=== PATIENT | female | born 1970 | race Caucasian/White ===

== ENCOUNTER 2019-10-31 11:49 | Outpatient (CLI) | payer OTHER ==
--- NOTE | 2019-10-31 15:20 | MMO ---
Bilateral MAMMO Bilat Screen [facility]. CLINICAL HISTORY: Patient is 49 years old and is seen for screening. The patient has no family history of breast cancer. The patient has a history of colon cancer at age 19. VIEWS: The views performed were: bilateral craniocaudal with tomosynthesis and bilateral mediolateral oblique with tomosynthesis. FILMS COMPARED: The present examination has been compared to prior imaging studies performed at [facility] on 10/27/2010 and 09/16/2012, [facility]. This study has been interpreted with the assistance of computer-aided detection. MAMMOGRAM FINDINGS: The breasts are almost entirely fat. There are benign appearing and vascular calcifications seen in both breasts. There are no suspicious masses, suspicious calcifications, or new areas of architectural distortion. IMPRESSION: THERE IS NO MAMMOGRAPHIC EVIDENCE OF MALIGNANCY. A ROUTINE FOLLOW-UP MAMMOGRAM IN 1 YEAR IS RECOMMENDED. THE RESULTS OF THIS EXAM WERE SENT TO THE PATIENT. ACR BI-RADS Category 2 - Benign finding MAMMOGRAPHY NOTE: 1. A negative mammogram report should not delay a biopsy if a dominant of clinically suspicious mass is present. 2. Approximately 10% to 15% of breast cancers are not detected by mammography. 3. Adenosis and dense breasts may obscure an underlying neoplasm. Reported by: NICOLE PEREZ MD Electonically Signed: [id number]
== END 2019-10-31 11:50 | disposition home or self-care (01) ==
LOC: BICMAMMO 11:49
PROVIDERS: ATTEND Family Medicine
DX: Z12.31 Encounter for screening mammogram for malignant neoplasm of breast (principal); Z85.038 Personal history of other malignant neoplasm of large intestine
CPT/HCPCS: 77063; 77067

== ENCOUNTER 2021-12-05 09:55 | Outpatient (CLI) | payer OTHER ==
[2021-12-05] MEDS ORDERED: Iopamidol 370 76% 100 ML VIAL ONE (10:09)
== END 2021-12-05 09:56 | disposition home or self-care (01) ==
LOC: CT 09:55
PROVIDERS: ATTEND Physician Assistant Medical
DX: R10.9 Unspecified abdominal pain (principal); K76.0 Fatty (change of) liver, not elsewhere classified; K44.9 Diaphragmatic hernia without obstruction or gangrene; M47.816 Spondylosis without myelopathy or radiculopathy, lumbar region; M43.16 Spondylolisthesis, lumbar region; Z90.710 Acquired absence of both cervix and uterus; Z98.890 Other specified postprocedural states
CPT/HCPCS: 74177

== ENCOUNTER 2022-02-20 11:16 | Inpatient (IN) | payer OTHER ==
[2022-02-20 12:31] LABS: #Basophils 0.1 thou/uL (0.0-0.2); #Eosinphils 0.2 thou/uL (0.0-0.7); #Lymphocytes 1.9 thou/uL (1.20-3.40); #Monocytes 0.8 thou/uL (0.11-0.59); #Neutrophils 6.5 thou/uL (1.40-6.50); %Basophils 0.7 % (0.0-1.0); %Eosinophils 2.3 % (0.0-10.0); %Lymphocytes 20.3 % (21.0-51.0); %Neutrophils 68.7 % (42.0-75.0); Hemoglobin 11.8 g/dL (12.0-16.0); Mean Corpuscular HGB CONC 31.7 g/dL (32.0-36.0); Mean Corpuscular Hemoglobin 34.2 pg (27.0-31.0); Mean Platelet Volume 7.2 fL (7.4-10.4); Platelet Count 245 thou/uL (130-400); RBC Distribution Width 16.6 % (11.5-14.5); Red Blood Cell (RBC) Count 3.45 mill/uL (4.20-5.40); White Blood Cell (WBC) Count 9.5 thou/uL (4.8-10.8)
[2022-02-20 12:59] LABS: CK (CPK) 54 U/L (29-168); Lipase 11 U/L (8-78)
[2022-02-20 13:01] LABS: ALT (SGPT) 24 U/L (8-55); AST (SGOT) 74 U/L (5-34); Acetaminophen Less than 10.0 mcg/mL (10.0-30.0); Albumin 2.2 g/dL (3.5-5.0); Alcohol Less than 10 mg/dL (Less than 10); Alkaline Phosphatase 201 U/L (40-110); Anion Gap 9 mmol/L (10-20); BUN (Urea Nitrogen) 6 mg/dL (9.8-20.1); Bilirubin, Total 2.2 mg/dL (0.2-1.2); Calc. Creatinine Clearance 0 mL/min (70-130); Calcium 7.6 mg/dL (7.8-10.44); Carbon Dioxide 26 mmol/L (22-29); Chloride 103 mmol/L (98-107); Glucose 68 mg/dL (70-105); Potassium 4.2 mmol/L (3.5-5.1); Protein, Total 6.2 g/dL (6.0-8.3); Salicylate Less than 8.0 mg/dL (15.0-30.0); Sodium 134 mmol/L (136-145)
[2022-02-20 14:02] LABS: INR-International Normal Ratio 1.4; PTT 44.1 sec (22.9-36.1); Prothrombin Time 17.6 sec (12.0-14.7)
[2022-02-20] MEDS ORDERED: Ondansetron ODT 4 MG TAB PO PRN (15:29)
[2022-02-20] MEDS ORDERED: Ondansetron PF 4 MG/2 ML Vial IVP PRN (15:29)
[2022-02-20] MEDS ORDERED: Acetaminophen 650 MG Suppository PR PRN (15:29)
[2022-02-20] MEDS ORDERED: Thiamine 100 MG TAB PO SCH (15:45)
[2022-02-20] MEDS: cefTRIAXone\\ROCEPHIN 1 GM in Sodium Chloride 0.9% 100 ML IVPB SCH (18:22)
[2022-02-20] MEDS: levETIRAcetam 500 MG TAB PO SCH (21:05)
[2022-02-20] MEDS: Acetaminophen 325 MG TAB PO PRN (21:06)
[2022-02-20] MEDS: Topiramate 25 MG TAB PO SCH (21:43)
[2022-02-20 22:15] LABS: SARS-CoV-2 PCR by NAA Not Detected (NotDetected)
[2022-02-21] MEDS: Acetaminophen 325 MG TAB PO PRN (03:31)
[2022-02-21 04:51] LABS: Hemoglobin 10.8 g/dL (12.0-16.0); Mean Corpuscular HGB CONC 30.7 g/dL (32.0-36.0); Mean Corpuscular Hemoglobin 33.8 pg (27.0-31.0); Mean Platelet Volume 7.5 fL (7.4-10.4); Platelet Count 204 thou/uL (130-400); RBC Distribution Width 16.7 % (11.5-14.5); Red Blood Cell (RBC) Count 3.18 mill/uL (4.20-5.40)
[2022-02-21] MEDS: HYDROcodone/Acetaminophen 10/325 mg Tablet PO PRN ×2 (05:01→21:48)
[2022-02-21] MEDS: Levothyroxine Sodium 50 MCG TAB PO SCH (05:01)
[2022-02-21 05:15] LABS: ALT (SGPT) 22 U/L (8-55); AST (SGOT) 76 U/L (5-34); Albumin 1.8 g/dL (3.5-5.0); Alkaline Phosphatase 177 U/L (40-110); Anion Gap 12 mmol/L (10-20); BUN (Urea Nitrogen) 5 mg/dL (9.8-20.1); Bilirubin, Total 1.7 mg/dL (0.2-1.2); Calc. Creatinine Clearance 152 mL/min (70-130); Calcium 7.6 mg/dL (7.8-10.44); Carbon Dioxide 20 mmol/L (22-29); Chloride 109 mmol/L (98-107); Globulin 3.8 g/dL (2.4-3.5); Glucose 60 mg/dL (70-105); Potassium 4.2 mmol/L (3.5-5.1); Protein, Total 5.6 g/dL (6.0-8.3); Sodium 137 mmol/L (136-145)
[2022-02-21 05:16] LABS: #Eosinphils 0.2 thou/uL (0.0-0.7); #Lymphocytes 1.7 thou/uL (1.20-3.40); #Monocytes 0.8 thou/uL (0.11-0.59); #Neutrophils 4.3 thou/uL (1.40-6.50); %Basophils 0.5 % (0.0-1.0); %Eosinophils 3.1 % (0.0-10.0); %Lymphocytes 23.6 % (21.0-51.0); %Monocytes 10.8 % (0.0-10.0); MDiff Complete? YES; Macrocytosis SLIGHT = 6-15 cells (100X) (0-5/hpf); Target Cells SLIGHT = 2-5 cells (100X) (0-1/hpf)
[2022-02-21] MEDS: Spironolactone 25 MG TAB PO SCH (08:50)
[2022-02-21] MEDS: levETIRAcetam 500 MG TAB PO SCH ×2 (08:50→21:48)
[2022-02-21] MEDS: Thiamine 100 MG TAB PO SCH (08:50)
[2022-02-21] MEDS: Furosemide 20 MG TAB PO SCH (08:50)
[2022-02-21] MEDS: Topiramate 25 MG TAB PO SCH ×2 (08:50→21:48)
[2022-02-21] MEDS ORDERED: levETIRAcetam 500 MG TAB PO SCH (09:00)
[2022-02-21] MEDS: cefTRIAXone\\ROCEPHIN 1 GM in Sodium Chloride 0.9% 100 ML IVPB SCH (16:44)
[2022-02-21] MEDS: Rifaximin 550 MG TAB PO SCH (21:50)
[2022-02-22] MEDS: HYDROcodone/Acetaminophen 10/325 mg Tablet PO PRN ×2 (03:20→18:31)
[2022-02-22] MEDS: Levothyroxine Sodium 50 MCG TAB PO SCH (06:29)
[2022-02-22 07:01] LABS: #Basophils 0.1 thou/uL (0.0-0.2); #Eosinphils 0.2 thou/uL (0.0-0.7); #Lymphocytes 2.6 thou/uL (1.20-3.40); #Monocytes 1.1 thou/uL (0.11-0.59); #Neutrophils 6.2 thou/uL (1.40-6.50); %Basophils 0.7 % (0.0-1.0); %Eosinophils 1.9 % (0.0-10.0); %Lymphocytes 25.6 % (21.0-51.0); %Monocytes 10.5 % (0.0-10.0); %Neutrophils 61.2 % (42.0-75.0); Hemoglobin 12.2 g/dL (12.0-16.0); Mean Corpuscular HGB CONC 31.1 g/dL (32.0-36.0); Mean Corpuscular Hemoglobin 34.1 pg (27.0-31.0); Platelet Count 239 thou/uL (130-400); RBC Distribution Width 17.2 % (11.5-14.5); Red Blood Cell (RBC) Count 3.58 mill/uL (4.20-5.40); White Blood Cell (WBC) Count 10.1 thou/uL (4.8-10.8)
[2022-02-22] MEDS: Rifaximin 550 MG TAB PO SCH ×2 (09:30→21:55)
[2022-02-22] MEDS: levETIRAcetam 500 MG TAB PO SCH ×2 (09:30→21:55)
[2022-02-22] MEDS: Furosemide 20 MG TAB PO SCH (09:31)
[2022-02-22] MEDS: Spironolactone 25 MG TAB PO SCH (09:31)
[2022-02-22] MEDS: Thiamine 100 MG TAB PO SCH (09:31)
[2022-02-22 10:13] LABS: Albumin 2.2 g/dL (3.5-5.0)
[2022-02-22 10:15] LABS: Chloride 108 mmol/L (98-107); Sodium 138 mmol/L (136-145)
[2022-02-22 10:16] LABS: Glucose 77 mg/dL (70-105)
[2022-02-22 10:17] LABS: Anion Gap 15 mmol/L (10-20); Carbon Dioxide 20 mmol/L (22-29)
[2022-02-22 10:18] LABS: Bilirubin, Total 1.3 mg/dL (0.2-1.2)
[2022-02-22 10:19] LABS: Alkaline Phosphatase 203 U/L (40-110); Calc. Creatinine Clearance 120 mL/min (70-130)
[2022-02-22 10:20] LABS: BUN (Urea Nitrogen) 6 mg/dL (9.8-20.1)
[2022-02-22 10:21] LABS: Magnesium 2.1 mg/dL (1.6-2.6)
[2022-02-22 10:22] LABS: ALT (SGPT) 28 U/L (8-55)
[2022-02-22] MEDS: Topiramate 25 MG TAB PO SCH ×2 (11:27→22:22)
[2022-02-22 11:41] LABS: Potassium 4.4 mmol/L (3.5-5.1)
[2022-02-22 11:42] LABS: Protein, Total 6.2 g/dL (6.0-8.3)
[2022-02-22 11:43] LABS: AST (SGOT) 109 U/L (5-34)
[2022-02-22 11:44] LABS: Phosphorus 4.2 mg/dL (2.3-4.7)
[2022-02-22 15:48] LABS: Potassium 5.7 mmol/L (3.5-5.1)
[2022-02-22] MEDS: cefTRIAXone\\ROCEPHIN 1 GM in Sodium Chloride 0.9% 100 ML IVPB SCH (17:02)
[2022-02-22 19:01] LABS: Potassium 3.5 mmol/L (3.5-5.1)
[2022-02-23 04:08] LABS: #Basophils 0.1 thou/uL (0.0-0.2); #Eosinphils 0.2 thou/uL (0.0-0.7); #Lymphocytes 2.4 thou/uL (1.20-3.40); #Monocytes 0.7 thou/uL (0.11-0.59); #Neutrophils 3.6 thou/uL (1.40-6.50); %Basophils 0.8 % (0.0-1.0); %Eosinophils 2.6 % (0.0-10.0); %Lymphocytes 34.9 % (21.0-51.0); %Monocytes 9.8 % (0.0-10.0); %Neutrophils 51.9 % (42.0-75.0); Hemoglobin 11.3 g/dL (12.0-16.0); Mean Corpuscular HGB CONC 30.7 g/dL (32.0-36.0); Mean Corpuscular Hemoglobin 33.4 pg (27.0-31.0); Mean Platelet Volume 7.3 fL (7.4-10.4); Platelet Count 249 thou/uL (130-400); RBC Distribution Width 17.4 % (11.5-14.5); Red Blood Cell (RBC) Count 3.38 mill/uL (4.20-5.40)
[2022-02-23 04:28] LABS: ALT (SGPT) 22 U/L (8-55); AST (SGOT) 76 U/L (5-34); Albumin 1.9 g/dL (3.5-5.0); Alkaline Phosphatase 184 U/L (40-110); Anion Gap 13 mmol/L (10-20); BUN (Urea Nitrogen) 5 mg/dL (9.8-20.1); Bilirubin, Total 1.2 mg/dL (0.2-1.2); Calc. Creatinine Clearance 140 mL/min (70-130); Calcium 7.9 mg/dL (7.8-10.44); Carbon Dioxide 23 mmol/L (22-29); Chloride 110 mmol/L (98-107); Globulin 3.7 g/dL (2.4-3.5); Glucose 85 mg/dL (70-105); Potassium 3.3 mmol/L (3.5-5.1); Protein, Total 5.6 g/dL (6.0-8.3); Sodium 143 mmol/L (136-145)
[2022-02-23] MEDS: HYDROcodone/Acetaminophen 10/325 mg Tablet PO PRN ×3 (04:51→22:42)
[2022-02-23] MEDS: Levothyroxine Sodium 50 MCG TAB PO SCH (05:00)
[2022-02-23] MEDS: Topiramate 25 MG TAB PO SCH ×2 (09:05→22:29)
[2022-02-23] MEDS: Rifaximin 550 MG TAB PO SCH ×2 (09:05→22:29)
[2022-02-23] MEDS: Thiamine 100 MG TAB PO SCH (09:05)
[2022-02-23] MEDS: levETIRAcetam 500 MG TAB PO SCH ×2 (09:05→22:29)
[2022-02-23] MEDS: Furosemide 20 MG TAB PO SCH (09:05)
[2022-02-23] MEDS: cefTRIAXone\\ROCEPHIN 1 GM in Sodium Chloride 0.9% 100 ML IVPB SCH (15:11)
[2022-02-24 05:33] LABS: #Eosinphils 0.1 thou/uL (0.0-0.7); #Lymphocytes 2.1 thou/uL (1.20-3.40); #Monocytes 0.6 thou/uL (0.11-0.59); #Neutrophils 3.9 thou/uL (1.40-6.50); %Basophils 0.6 % (0.0-1.0); %Eosinophils 1.8 % (0.0-10.0); %Lymphocytes 31.3 % (21.0-51.0); %Monocytes 9.4 % (0.0-10.0); Mean Corpuscular HGB CONC 31.2 g/dL (32.0-36.0); Mean Corpuscular Hemoglobin 33.7 pg (27.0-31.0); Mean Platelet Volume 6.9 fL (7.4-10.4); Platelet Count 261 thou/uL (130-400); RBC Distribution Width 17.1 % (11.5-14.5); Red Blood Cell (RBC) Count 3.26 mill/uL (4.20-5.40); White Blood Cell (WBC) Count 6.8 thou/uL (4.8-10.8)
[2022-02-24 05:51] LABS: ALT (SGPT) 20 U/L (8-55); AST (SGOT) 86 U/L (5-34); Albumin 1.7 g/dL (3.5-5.0); Alkaline Phosphatase 182 U/L (40-110); Anion Gap 10 mmol/L (10-20); BUN (Urea Nitrogen) 5 mg/dL (9.8-20.1); Bilirubin, Total 1.2 mg/dL (0.2-1.2); Calc. Creatinine Clearance 127 mL/min (70-130); Calcium 7.6 mg/dL (7.8-10.44); Carbon Dioxide 23 mmol/L (22-29); Chloride 112 mmol/L (98-107); Globulin 3.8 g/dL (2.4-3.5); Glucose 102 mg/dL (70-105); Protein, Total 5.5 g/dL (6.0-8.3); Sodium 142 mmol/L (136-145)
[2022-02-24] MEDS: Levothyroxine Sodium 50 MCG TAB PO SCH (05:52)
[2022-02-24] MEDS: HYDROcodone/Acetaminophen 10/325 mg Tablet PO PRN (05:52)
[2022-02-24] MEDS: levETIRAcetam 500 MG TAB PO SCH ×2 (08:27→21:19)
[2022-02-24] MEDS: Spironolactone 25 MG TAB PO SCH (08:28)
[2022-02-24] MEDS: Furosemide 20 MG TAB PO SCH (08:28)
[2022-02-24] MEDS: Thiamine 100 MG TAB PO SCH (08:28)
[2022-02-24] MEDS: Rifaximin 550 MG TAB PO SCH ×2 (08:28→21:19)
[2022-02-24] MEDS: Topiramate 25 MG TAB PO SCH ×2 (09:15→21:19)
[2022-02-24 12:38] LABS: Topiramate (Topamax) Test <1.5 ug/mL (2.0-25.0)
[2022-02-24] MEDS ORDERED: Electrolyte Replacement Protocol 1 EACH FS SCH (15:00)
[2022-02-24] MEDS: Potassium Chloride 20 MEQ in Premix Bag 1 BAG IVPB SCH ×2 (15:42→18:15)
[2022-02-24] MEDS: cefTRIAXone\\ROCEPHIN 1 GM in Sodium Chloride 0.9% 100 ML IVPB SCH (16:46)
[2022-02-24] MEDS: Enoxaparin Sodium 40 MG/0.4 ML SYRINGE SC SCH (21:19)
[2022-02-25] MEDS: Levothyroxine Sodium 50 MCG TAB PO SCH (05:41)
[2022-02-25 05:46] LABS: #Eosinphils 0.1 thou/uL (0.0-0.7); #Lymphocytes 2.1 thou/uL (1.20-3.40); #Monocytes 0.6 thou/uL (0.11-0.59); #Neutrophils 3.5 thou/uL (1.40-6.50); %Basophils 0.6 % (0.0-1.0); %Eosinophils 1.5 % (0.0-10.0); %Lymphocytes 33.4 % (21.0-51.0); %Monocytes 10.1 % (0.0-10.0); %Neutrophils 54.5 % (42.0-75.0); Hemoglobin 10.4 g/dL (12.0-16.0); Mean Corpuscular Hemoglobin 33.7 pg (27.0-31.0); Platelet Count 244 thou/uL (130-400); RBC Distribution Width 17.5 % (11.5-14.5); Red Blood Cell (RBC) Count 3.08 mill/uL (4.20-5.40); White Blood Cell (WBC) Count 6.4 thou/uL (4.8-10.8)
[2022-02-25 06:09] LABS: Anion Gap 12 mmol/L (10-20); BUN (Urea Nitrogen) 5 mg/dL (9.8-20.1); Calc. Creatinine Clearance 135 mL/min (70-130); Calcium 7.6 mg/dL (7.8-10.44); Carbon Dioxide 22 mmol/L (22-29); Chloride 112 mmol/L (98-107); Glucose 111 mg/dL (70-105); Phosphorus 3.4 mg/dL (2.3-4.7); Sodium 143 mmol/L (136-145)
[2022-02-25 06:20] LABS: Potassium 2.9 mmol/L (3.5-5.1)
[2022-02-25] MEDS ORDERED: Magnesium 2 GM/50 ML(in water) 2 GM in Premix Bag 1 BAG IVPB SCH (06:30)
[2022-02-25] MEDS ORDERED: Potassium Chloride 20 MEQ TAB PO SCH ×3 (07:00→22:15)
[2022-02-25] MEDS: Potassium Chloride 20 MEQ in Premix Bag 1 BAG IVPB SCH ×4 (08:24→16:44)
[2022-02-25] MEDS: Thiamine 100 MG TAB PO SCH (09:18)
[2022-02-25] MEDS: Rifaximin 550 MG TAB PO SCH ×2 (09:18→22:09)
[2022-02-25] MEDS: Topiramate 25 MG TAB PO SCH ×2 (09:19→23:52)
[2022-02-25] MEDS: levETIRAcetam 500 MG TAB PO SCH ×2 (09:19→22:09)
[2022-02-25] MEDS: Furosemide 20 MG TAB PO SCH (09:19)
[2022-02-25] MEDS: Spironolactone 25 MG TAB PO SCH (09:19)
[2022-02-25] MEDS: cefTRIAXone\\ROCEPHIN 1 GM in Sodium Chloride 0.9% 100 ML IVPB SCH (16:46)
[2022-02-25] MEDS ORDERED: Potassium Bicarbonate/Cit Ac 20 MEQ TAB PO SCH (17:00)
[2022-02-25 21:29] LABS: Anion Gap 12 mmol/L (10-20); BUN (Urea Nitrogen) 4 mg/dL (9.8-20.1); Calc. Creatinine Clearance 121 mL/min (70-130); Calcium 7.5 mg/dL (7.8-10.44); Carbon Dioxide 22 mmol/L (22-29); Chloride 111 mmol/L (98-107); Glucose 146 mg/dL (70-105); Potassium 3.5 mmol/L (3.5-5.1); Sodium 141 mmol/L (136-145)
[2022-02-25] MEDS: Enoxaparin Sodium 40 MG/0.4 ML SYRINGE SC SCH (22:10)
[2022-02-26] MEDS: Levothyroxine Sodium 50 MCG TAB PO SCH (06:17)
[2022-02-26 06:48] LABS: Anion Gap 14 mmol/L (10-20); BUN (Urea Nitrogen) 5 mg/dL (9.8-20.1); Calc. Creatinine Clearance 141 mL/min (70-130); Calcium 7.9 mg/dL (7.8-10.44); Carbon Dioxide 21 mmol/L (22-29); Chloride 113 mmol/L (98-107); Glucose 104 mg/dL (70-105); Magnesium 2.4 mg/dL (1.6-2.6); Potassium 5.2 mmol/L (3.5-5.1); Sodium 143 mmol/L (136-145)
[2022-02-26] MEDS ORDERED: Furosemide 20 MG/2 ML VIAL SLOW IVP SCH (08:30)
[2022-02-26] MEDS: Topiramate 25 MG TAB PO SCH ×2 (08:35→20:21)
[2022-02-26] MEDS: Thiamine 100 MG TAB PO SCH (08:36)
[2022-02-26] MEDS: levETIRAcetam 500 MG TAB PO SCH ×2 (08:36→20:21)
[2022-02-26] MEDS: Rifaximin 550 MG TAB PO SCH ×2 (08:36→20:22)
[2022-02-26] MEDS: Spironolactone 25 MG TAB PO SCH (08:36)
[2022-02-26] MEDS: cefTRIAXone\\ROCEPHIN 1 GM in Sodium Chloride 0.9% 100 ML IVPB SCH (17:29)
[2022-02-26] MEDS: Enoxaparin Sodium 40 MG/0.4 ML SYRINGE SC SCH (20:22)
[2022-02-27] MEDS: Levothyroxine Sodium 50 MCG TAB PO SCH (05:37)
[2022-02-27 05:51] LABS: Anion Gap 8 mmol/L (10-20); BUN (Urea Nitrogen) Less than 4 mg/dL (9.8-20.1); Calc. Creatinine Clearance 139 mL/min (70-130); Calcium 7.7 mg/dL (7.8-10.44); Carbon Dioxide 24 mmol/L (22-29); Chloride 111 mmol/L (98-107); Glucose 103 mg/dL (70-105); Magnesium 1.9 mg/dL (1.6-2.6); Potassium 3.4 mmol/L (3.5-5.1); Sodium 140 mmol/L (136-145)
[2022-02-27] MEDS ORDERED: Magnesium 2 GM/50 ML(in water) 2 GM in Premix Bag 1 BAG IVPB SCH (06:30)
[2022-02-27] MEDS ORDERED: Potassium Chloride 20 MEQ TAB PO SCH (06:45)
[2022-02-27] MEDS: Spironolactone 25 MG TAB PO SCH (09:45)
[2022-02-27] MEDS: Rifaximin 550 MG TAB PO SCH ×2 (09:45→19:53)
[2022-02-27] MEDS: levETIRAcetam 500 MG TAB PO SCH ×2 (09:45→19:53)
[2022-02-27] MEDS: Topiramate 25 MG TAB PO SCH ×2 (09:45→19:53)
[2022-02-27] MEDS: Thiamine 100 MG TAB PO SCH (09:46)
[2022-02-27] MEDS: PHOS-NAK 1 PKT PACK PO SCH ×2 (09:53→12:24)
[2022-02-27 16:37] LABS: SARS-CoV-2 PCR by NAA Not Detected (NotDetected)
[2022-02-27] MEDS: Enoxaparin Sodium 40 MG/0.4 ML SYRINGE SC SCH (19:52)
[2022-02-28] MEDS: Levothyroxine Sodium 50 MCG TAB PO SCH (05:50)
[2022-02-28] MEDS: Spironolactone 25 MG TAB PO SCH (08:08)
[2022-02-28] MEDS: levETIRAcetam 500 MG TAB PO SCH ×2 (08:09→20:49)
[2022-02-28] MEDS: Rifaximin 550 MG TAB PO SCH ×2 (08:10→20:49)
[2022-02-28] MEDS: Thiamine 100 MG TAB PO SCH (08:10)
[2022-02-28] MEDS: Topiramate 25 MG TAB PO SCH ×2 (08:11→20:49)
[2022-02-28 10:46] LABS: Calcium 7.9 mg/dL (7.8-10.44)
[2022-02-28 10:47] LABS: Glucose 121 mg/dL (70-105)
[2022-02-28 10:48] LABS: Carbon Dioxide 27 mmol/L (22-29); Chloride 108 mmol/L (98-107); Potassium 4.1 mmol/L (3.5-5.1); Sodium 140 mmol/L (136-145)
[2022-02-28 10:50] LABS: Calc. Creatinine Clearance 143 mL/min (70-130)
[2022-02-28 10:51] LABS: BUN (Urea Nitrogen) Less than 4 mg/dL (9.8-20.1)
[2022-02-28 10:56] LABS: Anion Gap 9 mmol/L (10-20)
[2022-02-28] MEDS ORDERED: Magnesium 2 GM/50 ML(in water) 2 GM in Premix Bag 1 BAG IVPB SCH (12:45)
[2022-02-28] MEDS: Enoxaparin Sodium 40 MG/0.4 ML SYRINGE SC SCH (20:49)
[2022-03-01] MEDS: Levothyroxine Sodium 50 MCG TAB PO SCH (06:35)
[2022-03-01] MEDS: Spironolactone 25 MG TAB PO SCH (08:54)
[2022-03-01] MEDS: levETIRAcetam 500 MG TAB PO SCH ×2 (08:56→21:06)
[2022-03-01] MEDS: Rifaximin 550 MG TAB PO SCH ×2 (08:57→21:05)
[2022-03-01] MEDS: Thiamine 100 MG TAB PO SCH (08:57)
[2022-03-01] MEDS: Topiramate 25 MG TAB PO SCH ×2 (08:58→21:06)
[2022-03-01] MEDS: HYDROcodone/Acetaminophen 5/325 mg Tablet PO PRN ×2 (15:45→21:30)
[2022-03-01] MEDS ORDERED: Aspirin/APAP/Caffeine Tab (Excedrin Migraine) PO SCH (16:00)
[2022-03-01] MEDS: Enoxaparin Sodium 40 MG/0.4 ML SYRINGE SC SCH (21:04)
[2022-03-02] MEDS: Levothyroxine Sodium 50 MCG TAB PO SCH (05:50)
[2022-03-02] MEDS: Spironolactone 25 MG TAB PO SCH (08:08)
[2022-03-02] MEDS: levETIRAcetam 500 MG TAB PO SCH ×2 (08:08→20:03)
[2022-03-02] MEDS: Rifaximin 550 MG TAB PO SCH ×2 (08:09→20:03)
[2022-03-02] MEDS: Thiamine 100 MG TAB PO SCH (08:09)
[2022-03-02] MEDS: Topiramate 25 MG TAB PO SCH ×2 (08:10→20:03)
[2022-03-02] MEDS: Enoxaparin Sodium 40 MG/0.4 ML SYRINGE SC SCH (20:02)
[2022-03-02] MEDS: HYDROcodone/Acetaminophen 5/325 mg Tablet PO PRN (20:06)
[2022-03-03] MEDS: Levothyroxine Sodium 50 MCG TAB PO SCH (05:10)
[2022-03-03] MEDS: levETIRAcetam 500 MG TAB PO SCH ×2 (08:16→20:01)
[2022-03-03] MEDS: Rifaximin 550 MG TAB PO SCH ×2 (08:16→20:01)
[2022-03-03] MEDS: Topiramate 25 MG TAB PO SCH ×2 (08:16→20:01)
[2022-03-03] MEDS: Thiamine 100 MG TAB PO SCH (08:16)
[2022-03-03] MEDS: Spironolactone 25 MG TAB PO SCH (08:16)
[2022-03-03] MEDS: Acetaminophen 500 MG TAB PO PRN ×2 (11:36→20:01)
[2022-03-03] MEDS: HYDROcodone/Acetaminophen 5/325 mg Tablet PO PRN (20:01)
[2022-03-03] MEDS: Enoxaparin Sodium 40 MG/0.4 ML SYRINGE SC SCH (20:01)
[2022-03-04 05:16] LABS: #Eosinphils 0.2 thou/uL (0.0-0.7); #Lymphocytes 1.7 thou/uL (1.20-3.40); #Monocytes 0.6 thou/uL (0.11-0.59); #Neutrophils 5.4 thou/uL (1.40-6.50); %Basophils 0.5 % (0.0-1.0); %Eosinophils 2.7 % (0.0-10.0); %Lymphocytes 21.3 % (21.0-51.0); %Neutrophils 67.5 % (42.0-75.0); Hemoglobin 12.6 g/dL (12.0-16.0); Mean Corpuscular HGB CONC 31.3 g/dL (32.0-36.0); Mean Platelet Volume 7.6 fL (7.4-10.4); Platelet Count 179 thou/uL (130-400); RBC Distribution Width 17.2 % (11.5-14.5); Red Blood Cell (RBC) Count 3.72 mill/uL (4.20-5.40)
[2022-03-04 05:40] LABS: ALT (SGPT) 26 U/L (8-55); AST (SGOT) 106 U/L (5-34); Albumin 1.7 g/dL (3.5-5.0); Alkaline Phosphatase 169 U/L (40-110); Anion Gap 13 mmol/L (10-20); BUN (Urea Nitrogen) 4 mg/dL (9.8-20.1); Bilirubin, Total 1.1 mg/dL (0.2-1.2); Calc. Creatinine Clearance 155 mL/min (70-130); Calcium 7.6 mg/dL (7.8-10.44); Carbon Dioxide 18 mmol/L (22-29); Chloride 105 mmol/L (98-107); Globulin 4.1 g/dL (2.4-3.5); Glucose 87 mg/dL (70-105); Magnesium 1.8 mg/dL (1.6-2.6); Phosphorus 3.5 mg/dL (2.3-4.7); Potassium 4.2 mmol/L (3.5-5.1); Protein, Total 5.8 g/dL (6.0-8.3); Sodium 132 mmol/L (136-145)
[2022-03-04] MEDS: HYDROcodone/Acetaminophen 5/325 mg Tablet PO PRN ×3 (06:30→20:59)
[2022-03-04] MEDS: Levothyroxine Sodium 50 MCG TAB PO SCH (06:30)
[2022-03-04] MEDS ORDERED: Magnesium 2 GM/50 ML(in water) 2 GM in Premix Bag 1 BAG IVPB SCH (06:30)
[2022-03-04] MEDS: Rifaximin 550 MG TAB PO SCH ×2 (09:57→20:59)
[2022-03-04] MEDS: levETIRAcetam 500 MG TAB PO SCH ×2 (09:57→20:59)
[2022-03-04] MEDS: Topiramate 25 MG TAB PO SCH ×2 (09:57→20:58)
[2022-03-04] MEDS: Spironolactone 25 MG TAB PO SCH (09:58)
[2022-03-04] MEDS: Thiamine 100 MG TAB PO SCH (09:58)
[2022-03-04] MEDS: Enoxaparin Sodium 40 MG/0.4 ML SYRINGE SC SCH (20:59)
[2022-03-05] MEDS: HYDROcodone/Acetaminophen 5/325 mg Tablet PO PRN ×3 (02:33→21:03)
[2022-03-05 05:35] LABS: #Eosinphils 0.2 thou/uL (0.0-0.7); #Lymphocytes 2.1 thou/uL (1.20-3.40); #Monocytes 0.7 thou/uL (0.11-0.59); #Neutrophils 3.7 thou/uL (1.40-6.50); %Basophils 0.5 % (0.0-1.0); %Eosinophils 3.4 % (0.0-10.0); %Lymphocytes 30.9 % (21.0-51.0); %Monocytes 10.2 % (0.0-10.0); Hemoglobin 11.8 g/dL (12.0-16.0); Mean Corpuscular HGB CONC 31.2 g/dL (32.0-36.0); Mean Corpuscular Hemoglobin 33.4 pg (27.0-31.0); Mean Platelet Volume 7.2 fL (7.4-10.4); Platelet Count 210 thou/uL (130-400); RBC Distribution Width 17.2 % (11.5-14.5); Red Blood Cell (RBC) Count 3.54 mill/uL (4.20-5.40); White Blood Cell (WBC) Count 6.7 thou/uL (4.8-10.8)
[2022-03-05 06:04] LABS: ALT (SGPT) 23 U/L (8-55); AST (SGOT) 84 U/L (5-34); Albumin 1.6 g/dL (3.5-5.0); Alkaline Phosphatase 163 U/L (40-110); Anion Gap 10 mmol/L (10-20); BUN (Urea Nitrogen) 4 mg/dL (9.8-20.1); Bilirubin, Total 0.9 mg/dL (0.2-1.2); Calc. Creatinine Clearance 172 mL/min (70-130); Calcium 7.5 mg/dL (7.8-10.44); Carbon Dioxide 20 mmol/L (22-29); Chloride 106 mmol/L (98-107); Globulin 3.8 g/dL (2.4-3.5); Glucose 84 mg/dL (70-105); Potassium 3.4 mmol/L (3.5-5.1); Protein, Total 5.4 g/dL (6.0-8.3); Sodium 133 mmol/L (136-145)
[2022-03-05] MEDS ORDERED: Potassium Chloride 20 MEQ TAB PO SCH (06:15)
[2022-03-05] MEDS: Thiamine 100 MG TAB PO SCH (08:49)
[2022-03-05] MEDS: Rifaximin 550 MG TAB PO SCH ×2 (08:49→20:50)
[2022-03-05] MEDS: Spironolactone 25 MG TAB PO SCH (08:49)
[2022-03-05] MEDS: levETIRAcetam 500 MG TAB PO SCH ×2 (08:49→20:50)
[2022-03-05] MEDS: Topiramate 25 MG TAB PO SCH ×2 (08:49→20:50)
[2022-03-05] MEDS ORDERED: Lidocaine 5% Patch TD SCH (11:00)
[2022-03-05 13:15] VITALS: BMI 39.2
[2022-03-05] MEDS: Enoxaparin Sodium 40 MG/0.4 ML SYRINGE SC SCH (20:50)
[2022-03-05] MEDS ORDERED: Transdermal Patch Removal TOP SCH (23:00)
[2022-03-06 00:25] LABS: SARS-CoV-2 PCR by NAA Not Detected (NotDetected)
[2022-03-06 05:55] LABS: #Basophils 0.1 thou/uL (0.0-0.2); #Eosinphils 0.2 thou/uL (0.0-0.7); #Lymphocytes 2.1 thou/uL (1.20-3.40); #Monocytes 0.6 thou/uL (0.11-0.59); #Neutrophils 3.1 thou/uL (1.40-6.50); %Basophils 1.2 % (0.0-1.0); %Eosinophils 3.7 % (0.0-10.0); %Lymphocytes 33.9 % (21.0-51.0); %Monocytes 9.7 % (0.0-10.0); %Neutrophils 51.5 % (42.0-75.0); Hemoglobin 12.1 g/dL (12.0-16.0); Mean Corpuscular HGB CONC 31.3 g/dL (32.0-36.0); Mean Corpuscular Hemoglobin 33.7 pg (27.0-31.0); Mean Platelet Volume 7.3 fL (7.4-10.4); Platelet Count 191 thou/uL (130-400); RBC Distribution Width 17.1 % (11.5-14.5); Red Blood Cell (RBC) Count 3.57 mill/uL (4.20-5.40); White Blood Cell (WBC) Count 6.1 thou/uL (4.8-10.8)
[2022-03-06 06:23] LABS: ALT (SGPT) 23 U/L (8-55); AST (SGOT) 87 U/L (5-34); Albumin 1.6 g/dL (3.5-5.0); Alkaline Phosphatase 166 U/L (40-110); Anion Gap 11 mmol/L (10-20); BUN (Urea Nitrogen) Less than 4 mg/dL (9.8-20.1); Bilirubin, Total 0.9 mg/dL (0.2-1.2); Calc. Creatinine Clearance 186 mL/min (70-130); Calcium 7.7 mg/dL (7.8-10.44); Carbon Dioxide 19 mmol/L (22-29); Chloride 107 mmol/L (98-107); Glucose 71 mg/dL (70-105); Potassium 4.1 mmol/L (3.5-5.1); Protein, Total 5.6 g/dL (6.0-8.3); Sodium 133 mmol/L (136-145)
[2022-03-06] MEDS: levETIRAcetam 500 MG TAB PO SCH (09:08)
[2022-03-06] MEDS: Rifaximin 550 MG TAB PO SCH (09:08)
[2022-03-06] MEDS: Spironolactone 25 MG TAB PO SCH (09:09)
[2022-03-06] MEDS: Topiramate 25 MG TAB PO SCH (09:09)
[2022-03-06] MEDS: Thiamine 100 MG TAB PO SCH (09:09)
[2022-03-06 11:54] VITALS: BP 101/68; TEMP 97
== END 2022-03-06 11:55 | DRG 441 ==
LOC: ERS 11:16 → ERHOLD 13:50 → 2NO 17:45 → SURG B 02-22 08:36
PROVIDERS: ADMIT Hospitalist; ATTEND Internal Medicine
DX: K72.00 Acute and subacute hepatic failure without coma (principal); G93.41 Metabolic encephalopathy; I50.22 Chronic systolic (congestive) heart failure; E87.1 Hypo-osmolality and hyponatremia; D68.9 Coagulation defect, unspecified; Z20.822 Contact with and (suspected) exposure to COVID-19; K76.0 Fatty (change of) liver, not elsewhere classified; E03.9 Hypothyroidism, unspecified; I25.10 Atherosclerotic heart disease of native coronary artery without angina pectoris; G40.909 Epilepsy, unspecified, not intractable, without status epilepticus; D64.9 Anemia, unspecified; E88.09 Other disorders of plasma-protein metabolism, not elsewhere classified; G89.4 Chronic pain syndrome; K70.30 Alcoholic cirrhosis of liver without ascites; F10.10 Alcohol abuse, uncomplicated; E87.6 Hypokalemia; Z88.8 Allergy status to other drugs, medicaments and biological substances; Z88.0 Allergy status to penicillin; Z79.899 Other long term (current) drug therapy; Z90.49 Acquired absence of other specified parts of digestive tract; Z90.710 Acquired absence of both cervix and uterus; Z98.84 Bariatric surgery status; Z79.890 Hormone replacement therapy
CPT/HCPCS: 36415; 70551; 71045; 76700; 80048; 80053; 80177; 80201; 80307; 82140; 82550; 83690; 83735; 83930; 84100; 84443; 84484; 85025; 85610; 85730; 93005; J0696; J1650; J1940; J3475; J3480; J3490; U0003; U0005

== ENCOUNTER 2022-04-03 15:22 | Outpatient (CLI) | payer OTHER | END 2022-04-03 15:23 | disposition home or self-care (01) | LOC: TBSIIMAG 15:22 | PROVIDERS: ATTEND Neurological Surgery | DX: M43.16 Spondylolisthesis, lumbar region (principal); Z98.890 Other specified postprocedural states | CPT/HCPCS: 72100 ==

== ENCOUNTER 2022-04-23 10:08 | Outpatient (CLI) | payer OTHER | END 2022-04-23 10:09 | disposition home or self-care (01) | LOC: BICULT 10:08 | PROVIDERS: ATTEND Internal Medicine | DX: K70.30 Alcoholic cirrhosis of liver without ascites (principal); K72.90 Hepatic failure, unspecified without coma; K76.0 Fatty (change of) liver, not elsewhere classified; R18.8 Other ascites; Z90.49 Acquired absence of other specified parts of digestive tract | CPT/HCPCS: 76700 ==

== ENCOUNTER → 2022-05-22 | Day surgery (SDC) | payer OTHER ==
[2022-05-19 15:25] VITALS: BMI 26.0
[~2022-05-22] MED LIST: Lidocaine 1% PF 5 ML VIAL ONE; Sodium Bicarbonate 2.5 MEQ/5 ML VIAL ONE
[2022-05-22 10:31] LABS: INR-International Normal Ratio 1.2; Prothrombin Time 14.9 sec (12.0-14.7)
[2022-05-22 10:37] LABS: #Eosinphils 0.2 thou/uL (0.0-0.7); #Lymphocytes 1.8 thou/uL (1.20-3.40); #Monocytes 0.4 thou/uL (0.11-0.59); #Neutrophils 2.6 thou/uL (1.40-6.50); %Basophils 0.5 % (0.0-1.0); %Eosinophils 4.1 % (0.0-10.0); %Lymphocytes 35.3 % (21.0-51.0); %Monocytes 8.1 % (0.0-10.0); %Neutrophils 51.9 % (42.0-75.0); Hemoglobin 14.4 g/dL (12.0-16.0); Mean Corpuscular HGB CONC 32.5 g/dL (32.0-36.0); Mean Corpuscular Hemoglobin 34.1 pg (27.0-31.0); Mean Platelet Volume 7.7 fL (7.4-10.4); Platelet Count 240 thou/uL (130-400); Red Blood Cell (RBC) Count 4.22 mill/uL (4.20-5.40); White Blood Cell (WBC) Count 5.1 thou/uL (4.8-10.8)
== END ==
LOC: ULT 09:57
PROVIDERS: ATTEND Internal Medicine
DX: K70.30 Alcoholic cirrhosis of liver without ascites (principal); Z79.899 Other long term (current) drug therapy; Z88.0 Allergy status to penicillin; Z88.5 Allergy status to narcotic agent; Z88.8 Allergy status to other drugs, medicaments and biological substances
CPT/HCPCS: 36415; 76705; 82140; 85025; 85610; 85730

== ENCOUNTER 2022-10-28 08:46 | Outpatient (CLI) | payer OTHER ==
[2022-10-28] MEDS ORDERED: Magnevist 469MG/ML 20 ML VIAL ONE (16:06)
== END 2022-10-28 08:47 | disposition home or self-care (01) ==
LOC: MRI 08:46
PROVIDERS: ATTEND Physician Assistant Medical
DX: K70.30 Alcoholic cirrhosis of liver without ascites (principal); K76.0 Fatty (change of) liver, not elsewhere classified; S22.31XD Fracture of one rib, right side, subsequent encounter for fracture with routine healing
CPT/HCPCS: 74183; A9579